=== PATIENT | female | born 1965 | race Caucasian/White ===

== ENCOUNTER 2022-03-07 07:27 | Outpatient (CLI) | payer BC, SELFPAY ==
[2022-03-07 14:12] LABS: Potassium* 3.8 mmol/L (3.6-5.1)
== END 2022-03-07 07:28 | disposition home or self-care (01) ==
LOC: FRMREF 07:28
PROVIDERS: PCP Internal Medicine Nephrology; Visit Provider Internal Medicine Nephrology
DX: N20.9 Urinary calculus, unspecified (principal)
CPT/HCPCS: 84132